=== PATIENT | female | born 1960 | race Caucasian/White ===

== ENCOUNTER 2017-05-22 07:03 | Outpatient (CLI) | payer OTHER ==
--- NOTE | 2017-05-22 08:43 | RAD ---
CHEST PA AND LATERAL: History: 57-year-old female with doctor's order indicating pneumonia. Comparison: 12-25-08 FINDINGS: Heart size is within normal limits. The lungs are clear. No confluent pneumonia, overt edema or pleu ral effusion. IMPRESSION: No acute intrathoracic disease. No evidence of pneumonia. Stable from prior study. POS: OFF
== END 2017-05-22 07:04 | disposition home or self-care (01) ==
LOC: RAD 07:03
PROVIDERS: ATTEND Family Medicine
DX: J18.9 Pneumonia, unspecified organism (principal)
CPT/HCPCS: 71020

== ENCOUNTER 2019-01-19 07:40 | Outpatient (CLI) | payer MEDICARE ==
--- NOTE | 2019-01-19 09:57 | RAD ---
RIGHT WRIST 3 VIEWS: HISTORY: Wrist pain. M25.531. COMPARISON: Wrist radiographs 01/12/2019. FINDINGS: There is severe degenerative disease of the thumb carpometacarpal joint. The scaphoid is intact. Moderate degenerative disease of the index finger carpometacarpal joint. There is a small joint effusion of the wrist. No acute displaced wrist fracture or malalignment. IMPRESSION: Intact scaphoid. Severe degenerative disease of the thumb carpometacarpal joint. POS: TPC
== END 2019-01-19 07:41 | disposition home or self-care (01) ==
LOC: RAD 07:40
PROVIDERS: ATTEND Family Medicine
DX: M25.531 Pain in right wrist (principal); M18.11 Unilateral primary osteoarthritis of first carpometacarpal joint, right hand

== ENCOUNTER 2019-07-22 08:33 | Outpatient (CLI) | payer MEDICARE ==
[2019-07-22 10:02] LABS: #Basophils 0.1 thou/uL (0.0-0.2); #Eosinphils 0.3 thou/uL (0.0-0.7); #Lymphocytes 2.8 thou/uL (1.20-3.40); #Monocytes 0.7 thou/uL (0.11-0.59); #Neutrophils 5.4 thou/uL (1.40-6.50); %Eosinophils 2.8 % (0.0-10.0); %Monocytes 7.1 % (0.0-10.0); %Neutrophils 58.3 % (42.0-75.0); Hemoglobin 13.5 g/dL (12.0-16.0); Mean Corpuscular HGB CONC 35.1 g/dL (32.0-36.0); Mean Corpuscular Hemoglobin 29.7 pg (27.0-31.0); Mean Corpuscular Volume 84.4 fL (78.0-98.0); Mean Platelet Volume 6.9 fL (7.4-10.4); Platelet Count 323 thou/uL (130-400); RBC Distribution Width 13.5 % (11.5-14.5); Red Blood Cell (RBC) Count 4.56 mill/uL (4.20-5.40); White Blood Cell (WBC) Count 9.2 thou/uL (4.8-10.8)
[2019-07-22 10:13] LABS: Bacteria/HPF 4+ HPF (None Seen); Bilirubin Negative (Negative); Blood, Urine Negative (Negative); Clarity Turbid (Clear); Glucose, Urine (Dipstick) Normal (Negative); Leukocyte 250 Leu/uL (Negative); Nitrite 2+ (Negative); Protein, Urine (Dipstick) 20 mg/dL (Neg-Trace); RBC/HPF 0-3 HPF (0-3); Urobilinogen Normal mg/dL (Less than 2); WBC/HPF 21-50 HPF (0-3)
[2019-07-22 10:16] LABS: Anion Gap 11 mmol/L (10-20); BUN (Urea Nitrogen) 18 mg/dL (9.8-20.1); Calc. Creatinine Clearance 0 mL/min (70-130); Calcium 9.3 mg/dL (7.8-10.44); Carbon Dioxide 33 mmol/L (22-29); Chloride 103 mmol/L (98-107); Estimated GFR-MDRD 65; Glucose 112 mg/dL (70-105); Potassium 4.4 mmol/L (3.5-5.1); Sodium 143 mmol/L (136-145)
== END 2019-07-22 08:34 | disposition home or self-care (01) ==
LOC: LABBT 08:33
PROVIDERS: ATTEND Orthopaedic Surgery Hand Surgery
DX: Z01.818 Encounter for other preprocedural examination (principal); M18.11 Unilateral primary osteoarthritis of first carpometacarpal joint, right hand; E34.51 Complete androgen insensitivity syndrome
CPT/HCPCS: 80048; 81001; 85025; 93005; 93010

== ENCOUNTER → 2019-07-24 | Day surgery (SDC) | payer MEDICARE ==
[2019-07-22 08:56] VITALS: BMI 42.5
[~2019-07-24] MED LIST: Acetaminophen 325 MG TAB PO PRN; Bacitracin Zinc Ointment 30 gm TUBE ONE; Betamet Acet/Betamet Na Ph 30 MG/5 ML VIAL ONE; Bupivacaine HCl 0.5%/Epinephrine 1:200,000/PF 30 ml Vial ONE; Bupivacaine PF 0.5% 30 ML VIAL ONE; Dexamethasone 20 MG/5 ML VIAL ONE; Fentanyl 100 MCG/2 ML VIAL IV PRN; Fentanyl 100 MCG/2 ML VIAL ONE; HYDROcodone/Acetaminophen 10/325 mg Tablet PO PRN; Ketorolac Tromethamine 30 MG/ML VIAL IVP PRN; Ketorolac Tromethamine 30 MG/ML VIAL ONE; Lidocaine 1% PF 5 ML VIAL ONE; Midazolam HCl 2 mg/2 ml Vial ONE; Ondansetron PF 4 MG/2 ML Vial IVP PRN; Ondansetron PF 4 MG/2 ML Vial ONE; PROPOFOL 200 MG/20 ML VIAL ONE; Ropivacaine 0.2% 550 ML 550 ML NERVE BLCK SCH; Ropivacaine 0.2% HCl/PF (40 MG/20 ML VIAL) ONE; Ropivacaine 0.5% HCl/PF (150 MG/30 ML VIAL) ONE; Sodium Chloride 0.9% 10 ML ONE; Zolpidem Tartrate 5 MG TAB PO PRN
--- NOTE | 2019-07-24 10:03 | RAD ---
EXAM: XR Finger(s) Rt Min 2 View PROVIDED CLINICAL HISTORY: Surgery COMPARISON: 01/19/2019 FINDINGS: Multiple spot fluoroscopic intraoperative images were obtained of the right proximal thumb during the course of presumed thumb suspension plasty. IMPRESSION: As above.
--- NOTE | 2019-07-24 16:29 | OP ---
DATE OF PROCEDURE: 07/24/2019 PREOPERATIVE DIAGNOSES: 1. Left thumb carpometacarpal joint severe osteoarthritis. 2. Left 1st dorsal compartment tenosynovitis with de Quervain's. FINDINGS: 1. Left thumb carpometacarpal joint severe osteoarthritis. 2. Left 1st dorsal compartment tenosynovitis with de Quervain's with very thick tenosynovium and tight retinaculum in the 1st dorsal compartment of the same left wrist and then at the left thumb, 90% involvement articular surface of the trapezoid, large osteophytes of trapezoid, and the base of the thumb metacarpal. PROCEDURES PERFORMED: 1. De Quervain release, left upper extremity. 2. Left extensor compartment, 1st, release, with tenosynovectomy, radical. 3. Ligament replacement and tendon interposition for the CMC arthroplasty of the left thumb. 4. C-arm supervision. 5. Tendon transfer, flexor carpi radialis tendon. SPECIMEN REMOVED: Trapezium complete. ESTIMATED BLOOD LOSS: 20 mL. TOURNIQUET TIME: 111 minutes. DESCRIPTION OF PROCEDURE: After successful anesthesia combination of general LMA and block, limb was prepped and draped. We did a time-out to identify the appropriate thumb and site, and then, we were able to use the C-arm to get final confirmation. We outlined the first dorsal compartment incision, FCR harvest incisions, and the curvilinear base of thumb carpometacarpal joint incision. We injected each with 5 mL of Marcaine and then exsanguinated the limb with the tourniquet inflated to 250 mmHg pressure. We then made the zigzag 1st dorsal compartment incision, saw the superficial radial nerve branches, dissected bluntly down to the retinaculum, protected them, and opened the retinaculum in line with [place] blade. We then sutured dorsally, there was another sleeve, which we incorporated into the removal. Then, attention was turned to visualize the tendons. There were 3 sleeves of tendons, 2 of the abductor pollicis longus and then no separate extensor compartment, but there was tenosynovitis, so we performed a radical tenosynovectomy of the extensor tendons within this compartment, a sample of which was sent as a specimen. At this point, the patient then had the curvilinear incision made over the base of the thumb, carried through skin and subcutaneous tissue, out the cutaneous nerve branch, preserving them, then released with a [place] blade the fascia of the thenar muscles versus other insertions on the joint capsule and the abductor pollicis tendon. We then this, opened up the joint capsule and tagged with interrupted 2-0 Vicryl and visualized the carpometacarpal joint of the thumb. Arthrosis was 90% as we listed above. We then began sharp dissection with tenotomy scissors, that beginning at radial distal to ulnar proximal until we had opened the scaphoid-trapezial interval capsule and we were able to find the flexor carpi radialis. We found it just entered the wrist, removed it from its soft tissue envelope including its a edge on the ulnar wall of the trapezium, protected it, and then lifted the trapezium out after placing, identifying 2-0 threaded K-wire and this showed excellent position and that was the trapezium. The trapezium removed the large osteophytes around the entire 2/3 of the base of the thumb. We then rotated the thumb into the plane of the palm, elevated the back wall to protect the FCR with a small wide spoonbill Hohmann and drilled a 2.5 drill bit from a 1.25 cm distal to the lateral wall of the thumb into obliquely actually the junction of the chondral surface with the metaphysis. We then widened this with a 3.5 drill bit over the same area, used a curette to make it even wider. We then found the flexor carpi radialis tendons in the forearm, used 2 incisions to harvest it, and we did a complete harvest. We then took a complete transferred tendon and weaved it from inside out at the thumb tunnel, secured it under tension, and then pinned it in nearly anatomical position in frontal sagittal plane. The patient then had the remainder of the FCR secured to the sidewall under tension of the thumb, the abductor pollicis longus, and the capsule thickening posterior in the CMC joint. This was tied with 3-0 Prolene interrupted. After this, we then had a previously placed deep in the posterior ulnar capsule a 3-0 Prolene, and we performed the anchovy with a 3-0 Prolene, being threaded using a Oliverio needle x2 and this was tied deep and the capsule was closed over it. We released the tourniquet. We obtained hemostasis. We closed the fascia and the thenar muscle back to fascia and extensor mechanism, this was interrupted, and then we closed subcutaneous tissue with a running 3-0 Monocryl at all the four incisions, used Steri-Strips and dried, Adaptic with 4x4, Kerlix, and a thumb spica splint. She left the operating room without evidence of anesthetic or operative complication. Job ID: [id number]
== END ==
LOC: SDC 05:26
PROVIDERS: ATTEND Orthopaedic Surgery Hand Surgery
PROC: 0LX80ZZ Transfer Left Hand Tendon, Open Approach (ICD-10-PCS; principal; 2019-07-24)
PROC: 0LU807Z Supplement Left Hand Tendon with Autologous Tissue Substitute, Open Approach (ICD-10-PCS; 2019-07-24)
PROC: 0RQT0ZZ Repair Left Carpometacarpal Joint, Open Approach (ICD-10-PCS; 2019-07-24)
PROC: 0LN60ZZ Release Left Lower Arm and Wrist Tendon, Open Approach (ICD-10-PCS; 2019-07-24)
PROC: 0LB60ZZ Excision of Left Lower Arm and Wrist Tendon, Open Approach (ICD-10-PCS; 2019-07-24)
PROC: 3E0T3BZ Introduction of Anesthetic Agent into Peripheral Nerves and Plexi, Percutaneous Approach (ICD-10-PCS; 2019-07-24)
DX: M18.11 Unilateral primary osteoarthritis of first carpometacarpal joint, right hand (principal); M65.4 Radial styloid tenosynovitis [de Quervain]; I10 Essential (primary) hypertension; M89.29 Other disorders of bone development and growth, multiple sites; G89.18 Other acute postprocedural pain; M54.9 Dorsalgia, unspecified; G25.81 Restless legs syndrome; E66.01 Morbid (severe) obesity due to excess calories; Z68.41 Body mass index [BMI] 40.0-44.9, adult; Z79.1 Long term (current) use of non-steroidal anti-inflammatories (NSAID); Z79.82 Long term (current) use of aspirin; Z79.899 Other long term (current) drug therapy; Z85.3 Personal history of malignant neoplasm of breast; Z88.1 Allergy status to other antibiotic agents; Z88.5 Allergy status to narcotic agent; Z88.8 Allergy status to other drugs, medicaments and biological substances; Z91.048 Other nonmedicinal substance allergy status; Z98.84 Bariatric surgery status
CPT/HCPCS: 25116; 25447; 26483; 64413; 73140; 76000; A4306; 88305; J0670; J0690; J0702; J1100; J1885; J2001; J2250; J2405; J2704; J2795; J3010; J3490; S0020

== ENCOUNTER 2019-08-18 10:48 | Day surgery (SDC) | payer MEDICARE ==
[2019-08-17 14:30] VITALS: BMI 42.5
[~2019-08-18 10:48] MED LIST changes: -Acetaminophen 325 MG TAB PO PRN; -Bacitracin Zinc Ointment 30 gm TUBE ONE; -Betamet Acet/Betamet Na Ph 30 MG/5 ML VIAL ONE; -Bupivacaine HCl 0.5%/Epinephrine 1:200,000/PF 30 ml Vial ONE; -Bupivacaine PF 0.5% 30 ML VIAL ONE; -Dexamethasone 20 MG/5 ML VIAL ONE; -Fentanyl 100 MCG/2 ML VIAL IV PRN; -Fentanyl 100 MCG/2 ML VIAL ONE; -HYDROcodone/Acetaminophen 10/325 mg Tablet PO PRN; -Ketorolac Tromethamine 30 MG/ML VIAL IVP PRN; -Ketorolac Tromethamine 30 MG/ML VIAL ONE; -Midazolam HCl 2 mg/2 ml Vial ONE; -Ondansetron PF 4 MG/2 ML Vial IVP PRN; -Ondansetron PF 4 MG/2 ML Vial ONE; -Ropivacaine 0.2% 550 ML 550 ML NERVE BLCK SCH; -Ropivacaine 0.2% HCl/PF (40 MG/20 ML VIAL) ONE; -Ropivacaine 0.5% HCl/PF (150 MG/30 ML VIAL) ONE; -Sodium Chloride 0.9% 10 ML ONE; -Zolpidem Tartrate 5 MG TAB PO PRN; +ePHEDrine/0.9% NaCl/PF SYRINGE 50 mg/10 ml ONE
[2019-08-18 12:15] LABS: Anion Gap 11 mmol/L (10-20); BUN (Urea Nitrogen) 16 mg/dL (9.8-20.1); Calc. Creatinine Clearance 148 mL/min (70-130); Calcium 9.3 mg/dL (7.8-10.44); Carbon Dioxide 32 mmol/L (22-29); Chloride 101 mmol/L (98-107); Estimated GFR-MDRD 85; Glucose 98 mg/dL (70-105); Potassium 4.2 mmol/L (3.5-5.1); Sodium 140 mmol/L (136-145)
[2019-08-18] MEDS ORDERED: Bupivacaine PF 0.5% 30 ML VIAL ONE (14:39)
[2019-08-18] MEDS ORDERED: Bacitracin Zinc Ointment 30 gm TUBE ONE (14:40)
[2019-08-18] MEDS ORDERED: Sodium Chloride 0.9% 10 ML ONE (14:40)
[2019-08-18] MEDS ORDERED: Fentanyl 100 MCG/2 ML VIAL ONE (16:20)
[2019-08-18] MEDS ORDERED: Ketorolac Tromethamine 30 MG/ML VIAL ONE (16:25)
[2019-08-18] MEDS ORDERED: Ondansetron PF 4 MG/2 ML Vial ONE (16:25)
--- NOTE | 2019-08-18 16:31 | OP ---
DATE OF PROCEDURE: 08/18/2019 PREOPERATIVE DIAGNOSIS: Painful deep implant, right thumb. POSTOPERATIVE DIAGNOSIS: Painful deep implant, right thumb. PROCEDURES PERFORMED: 1. C-arm supervision. 2. Removal of deep implant, right thumb. FINDINGS: After implant was removed, the first metacarpal to the second metacarpal interval as well as relationship to the scaphoid was maintained without loss of height. DESCRIPTION OF PROCEDURE: After successful general and LMA technique, the limb was prepped and draped. We brought the C-arm to the field. We exsanguinated the limb and inflated the tourniquet. We used the distal 1 cm of an incision after the C-arm identified the wire, dissected down, it was buried underneath one of the extensor tendons, dissected around it and removed the K-wire deep implant. We then irrigated the area. We released the tourniquet and obtained hemostasis. Post C-arm views after K-wire removal showed no migration or loss of position. We obtained hemostasis and closed the wound with interrupted 4-0 nylon multiple sutures. Bulky dressing applied without splint. The patient left the operating room without evidence of anesthetic or operative complication. Job ID: [id number]
--- NOTE | 2019-08-18 17:17 | RAD ---
Right thumb 2 views intraoperative fluoroscopy HISTORY: Orthopedic fixation. FINDINGS: Intraoperative fluoroscopy was provided for orthopedic fixation is performed by Dr. Lulú zamora. Spot fluoroscopic image shows lateral dislocation at the first carpometacarpal joint. Degenerative changes throughout the wrist and first metacarpophalangeal joint. Fluoroscopy time 10 seconds.
== END 2019-08-18 18:06 | disposition home or self-care (01) ==
LOC: SDC 10:48
PROVIDERS: ATTEND Orthopaedic Surgery Hand Surgery
PROC: 0RP Upper Joints, Removal (ICD-10-PCS; principal; 2019-08-18)
DX: T84.84XA Pain due to internal orthopedic prosthetic devices, implants and grafts, initial encounter (principal); T84.220A Displacement of internal fixation device of bones of hand and fingers, initial encounter; M54.12 Radiculopathy, cervical region; G89.29 Other chronic pain; M54.9 Dorsalgia, unspecified; I10 Essential (primary) hypertension; I47.1 Supraventricular tachycardia; Z85.3 Personal history of malignant neoplasm of breast; Z87.891 Personal history of nicotine dependence; Z79.82 Long term (current) use of aspirin; Z79.899 Other long term (current) drug therapy; Z88.1 Allergy status to other antibiotic agents; Z88.5 Allergy status to narcotic agent; Z88.8 Allergy status to other drugs, medicaments and biological substances; Z91.048 Other nonmedicinal substance allergy status; Z98.84 Bariatric surgery status
CPT/HCPCS: 36415; 76000; 80048; 93005; 93010; J0690; J1885; J2001; J2405; J2704; J3010; J3490; S0020

== ENCOUNTER 2020-03-07 13:17 | Emergency (ER) | payer MEDICARE ==
[2020-03-07] MEDS ORDERED: Bacitracin 1 PK ONE (13:52)
[2020-03-07] MEDS ORDERED: Adacel (T-DAP) 0.5 ML SYRINGE ONE (14:02)
== END 2020-03-07 14:10 | disposition home or self-care (01) ==
LOC: ERS 13:17
DX: S51.851A Open bite of right forearm, initial encounter (principal); M19.90 Unspecified osteoarthritis, unspecified site; Z85.3 Personal history of malignant neoplasm of breast; Z79.82 Long term (current) use of aspirin; Z79.899 Other long term (current) drug therapy; Z87.891 Personal history of nicotine dependence; W54.0XXA Bitten by dog, initial encounter
CPT/HCPCS: 90471; 90715

== ENCOUNTER 2020-03-21 04:47 | Emergency (ER) | payer MEDICARE | END 2020-03-21 05:26 | disposition home or self-care (01) | LOC: ERS 04:47 | DX: G89.29 Other chronic pain (principal); M54.5 Low back pain; M19.90 Unspecified osteoarthritis, unspecified site; Z87.891 Personal history of nicotine dependence; Z79.899 Other long term (current) drug therapy; Z79.82 Long term (current) use of aspirin | CPT/HCPCS: 99281 ==

== ENCOUNTER 2020-10-27 09:48 | Inpatient (IN) | payer MEDICARE ==
[2020-10-27 10:38] LABS: #Basophils 0.1 thou/uL (0.0-0.2); #Eosinphils 0.2 thou/uL (0.0-0.7); #Lymphocytes 2.5 thou/uL (1.20-3.40); #Monocytes 0.7 thou/uL (0.11-0.59); #Neutrophils 10.4 thou/uL (1.40-6.50); %Basophils 0.4 % (0.0-1.0); %Eosinophils 1.5 % (0.0-10.0); %Monocytes 4.8 % (0.0-10.0); %Neutrophils 75.4 % (42.0-75.0); Hemoglobin 13.3 g/dL (12.0-16.0); Mean Corpuscular HGB CONC 35.1 g/dL (32.0-36.0); Mean Corpuscular Hemoglobin 30.6 pg (27.0-31.0); Mean Corpuscular Volume 87.2 fL (78.0-98.0); Mean Platelet Volume 7.2 fL (7.4-10.4); Platelet Count 242 thou/uL (130-400); Red Blood Cell (RBC) Count 4.36 mill/uL (4.20-5.40); White Blood Cell (WBC) Count 13.8 thou/uL (4.8-10.8)
[2020-10-27 10:41] LABS: Bilirubin Small (Negative); Blood, Urine Negative (Negative); Glucose, Urine (Dipstick) Negative (Negative); Ketone, Urine > or equal to 80 mg/dL (Negative); Leukocyte Small (Negative); Nitrite Negative (Negative); Protein, Urine (Dipstick) Negative (Neg-Trace); Specific Gravity, Urine 1.015 (1.005-1.030)
[2020-10-27 10:52] LABS: Bacteria/HPF Rare-Few HPF (None Seen); Clarity Clear (Clear); RBC/HPF None Seen HPF (0-3); Squamous Epithelial 0-3 HPF (0-3)
[2020-10-27] MEDS ORDERED: cefTRIAXone\\ROCEPHIN 2 GM VIAL ONE (11:03)
[2020-10-27 11:04] LABS: ALT (SGPT) 18 U/L (8-55); AST (SGOT) 16 U/L (5-34); Albumin 3.8 g/dL (3.5-5.0); Alkaline Phosphatase 107 U/L (40-110); Anion Gap 13 mmol/L (10-20); BUN (Urea Nitrogen) 9 mg/dL (9.8-20.1); Bilirubin, Total 1.2 mg/dL (0.2-1.2); Calc. Creatinine Clearance 0 mL/min (70-130); Calcium 8.7 mg/dL (7.8-10.44); Carbon Dioxide 28 mmol/L (22-29); Chloride 101 mmol/L (98-107); Globulin 2.7 g/dL (2.4-3.5); Glucose 126 mg/dL (70-105); Protein, Total 6.5 g/dL (6.0-8.3); Sodium 139 mmol/L (136-145)
[2020-10-27 11:09] LABS: Potassium 2.8 mmol/L (3.5-5.1)
[2020-10-27] MEDS ORDERED: Potassium Chloride 20 MEQ TAB ONE (11:17)
[2020-10-27] MEDS ORDERED: Azithromycin 500 MG VIAL ONE (12:24)
[2020-10-27] MEDS ORDERED: Enoxaparin Sodium 30 MG/0.3 ML SYRINGE ONE (12:42)
[2020-10-27] MEDS ORDERED: Enoxaparin Sodium 80 MG/0.8 ML SYRINGE ONE (12:42)
[2020-10-27] MEDS ORDERED: Ondansetron ODT 4 MG TAB PO PRN (13:37)
[2020-10-27] MEDS ORDERED: Acetaminophen 650 MG Suppository PR PRN (13:37)
[2020-10-27] MEDS ORDERED: Guaifenesin DM 100-10/5 ML UDCUP PO PRN (13:37)
[2020-10-27] MEDS ORDERED: Ondansetron PF 4 MG/2 ML Vial IVP PRN (13:37)
[2020-10-27] MEDS ORDERED: Acetaminophen 325 MG TAB PO PRN (13:37)
[2020-10-27 13:56] LABS: SARS-CoV-2 NAA Rapid Test Not Detected (NotDetected)
[2020-10-27] MEDS ORDERED: Albuterol 200 PUFF (6.7GM INHALER) INH PRN (14:20)
[2020-10-27] MEDS ORDERED: Iopamidol-370 76% 500 ML 1 ML ONE (14:22)
[2020-10-27] MEDS ORDERED: Potassium Phosphate 30 MMOL in Sodium Chloride 0.9% 250 ML 250 ML IVPB SCH (14:30)
[2020-10-27 14:48] LABS: Troponin I Less than 0.010 ng/mL (< 0.028)
[2020-10-27 17:03] LABS: Troponin I Less than 0.010 ng/mL (< 0.028)
[2020-10-27 17:06] VITALS: BMI 44.9
[2020-10-27 19:35] LABS: Anion Gap 14 mmol/L (10-20); BUN (Urea Nitrogen) 7 mg/dL (9.8-20.1); Calc. Creatinine Clearance 172 mL/min (70-130); Calcium 7.8 mg/dL (7.8-10.44); Carbon Dioxide 24 mmol/L (22-29); Chloride 106 mmol/L (98-107); Glucose 111 mg/dL (70-105); Magnesium 1.7 mg/dL (1.6-2.6); Sodium 141 mmol/L (136-145)
[2020-10-27 19:54] LABS: Potassium 2.8 mmol/L (3.5-5.1)
[2020-10-27] MEDS: Enoxaparin Sodium 120 MG/0.8 ML SYRINGE SC SCH (20:53)
[2020-10-27] MEDS ORDERED: rOPINIRole HCl 2 MG TAB PO SCH (21:45)
[2020-10-27 22:38] LABS: SARS-CoV-2 PCR by NAA Not Detected (NotDetected)
[2020-10-28 07:39] LABS: #Eosinphils 0.3 thou/uL (0.0-0.7); #Lymphocytes 1.9 thou/uL (1.20-3.40); #Monocytes 0.6 thou/uL (0.11-0.59); #Neutrophils 6.1 thou/uL (1.40-6.50); %Basophils 0.3 % (0.0-1.0); %Eosinophils 3.4 % (0.0-10.0); %Lymphocytes 20.9 % (21.0-51.0); %Monocytes 6.2 % (0.0-10.0); %Neutrophils 69.2 % (42.0-75.0); Hemoglobin 12.2 g/dL (12.0-16.0); Mean Corpuscular HGB CONC 35.5 g/dL (32.0-36.0); Mean Corpuscular Volume 87.4 fL (78.0-98.0); Platelet Count 227 thou/uL (130-400); RBC Distribution Width 12.9 % (11.5-14.5); Red Blood Cell (RBC) Count 3.95 mill/uL (4.20-5.40); White Blood Cell (WBC) Count 8.8 thou/uL (4.8-10.8)
[2020-10-28 07:44] LABS: Anion Gap 16 mmol/L (10-20); BUN (Urea Nitrogen) 5 mg/dL (9.8-20.1); Calc. Creatinine Clearance 180 mL/min (70-130); Carbon Dioxide 20 mmol/L (22-29); Chloride 104 mmol/L (98-107); Glucose 139 mg/dL (70-105); Sodium 137 mmol/L (136-145)
[2020-10-28 07:49] LABS: Potassium 2.9 mmol/L (3.5-5.1)
[2020-10-28] MEDS ORDERED: Potassium Phosphate 30 MMOL in Sodium Chloride 0.9% 250 ML 250 ML IVPB SCH (08:15)
[2020-10-28] MEDS ORDERED: Potassium Chloride 20 MEQ TAB PO SCH (08:15)
[2020-10-28] MEDS ORDERED: Magnesium 2 GM/50 ML 2 GM in Premix Bag 1 BAG IVPB SCH (08:30)
[2020-10-28] MEDS: Enoxaparin Sodium 120 MG/0.8 ML SYRINGE SC SCH (08:58)
[2020-10-28] MEDS ORDERED: rOPINIRole HCl 2 MG TAB PO SCH (09:00)
[2020-10-28] MEDS ORDERED: Apixaban 5 MG TAB PO SCH ×2 (09:00→21:00)
[2020-10-28] MEDS ORDERED: cefTRIAXone\\ROCEPHIN 1 GM in Sodium Chloride 0.9% 100 ML IVPB SCH (11:00)
[2020-10-28 12:00] LABS: Anion Gap 15 mmol/L (10-20); BUN (Urea Nitrogen) 4 mg/dL (9.8-20.1); Calc. Creatinine Clearance 216 mL/min (70-130); Calcium 8.7 mg/dL (7.8-10.44); Carbon Dioxide 23 mmol/L (22-29); Chloride 104 mmol/L (98-107); Glucose 106 mg/dL (70-105); Sodium 139 mmol/L (136-145)
[2020-10-28] MEDS ORDERED: Azithromycin 500 MG in Sodium Chloride 0.9% 250 ML 250 ML IVPB SCH ×2 (12:00→18:00)
[2020-10-28 12:06] LABS: Potassium 2.9 mmol/L (3.5-5.1)
[2020-10-28 15:25] LABS: Anion Gap 20 mmol/L (10-20); BUN (Urea Nitrogen) 4 mg/dL (9.8-20.1); Calc. Creatinine Clearance 177 mL/min (70-130); Calcium 8.1 mg/dL (7.8-10.44); Carbon Dioxide 17 mmol/L (22-29); Chloride 106 mmol/L (98-107); Glucose 103 mg/dL (70-105); Potassium 3.8 mmol/L (3.5-5.1); Sodium 139 mmol/L (136-145)
[2020-10-28 17:18] LABS: SARS-CoV-2 IgG Ab Non-Reactive (NonReactive); SARS-CoV-2 IgG Index 0.05 S/CO (< 1.40)
[2020-10-28 17:54] VITALS: BP 128/76; TEMP 98.4
[2020-10-28] MEDS ORDERED: carBAMazepine 100 mg Chewable Tablet PO SCH (21:00)
[2020-10-28] MEDS ORDERED: Amitriptyline HCl 100 MG TAB PO SCH (21:00)
[2020-10-28] MEDS ORDERED: CeleCOXIB 100 MG CAP PO SCH (21:00)
[2020-10-28] MEDS ORDERED: Non-Formulary Item 1 EACH (Baclofen [Baclofen] 20 MG Tablet) PO SCH (21:00)
[2020-10-28] MEDS ORDERED: Hydrochlorothiazide 25 MG TAB PO SCH ×2 (21:00)
[2020-10-28] MEDS ORDERED: Non-Formulary Item 1 EACH (Celecoxib [Celebrex] 200 MG Capsule) PO SCH (21:00)
[2020-10-28] MEDS ORDERED: Baclofen 10 MG TAB PO SCH (21:00)
[2020-10-29] MEDS ORDERED: Hydrochlorothiazide 25 MG TAB PO SCH ×2 (09:00)
== END 2020-10-28 18:33 | disposition home or self-care (01) | DRG 871 ==
LOC: ERS 09:48 → T4-A 12:42
PROVIDERS: ADMIT Internal Medicine; ATTEND Internal Medicine
DX: A41.9 Sepsis, unspecified organism (principal); I26.99 Other pulmonary embolism without acute cor pulmonale; J18.9 Pneumonia, unspecified organism; N39.0 Urinary tract infection, site not specified; Z20.822 Contact with and (suspected) exposure to COVID-19; G89.29 Other chronic pain; M54.9 Dorsalgia, unspecified; E78.5 Hyperlipidemia, unspecified; I10 Essential (primary) hypertension; F32.9 Major depressive disorder, single episode, unspecified; F41.9 Anxiety disorder, unspecified; G62.9 Polyneuropathy, unspecified; I45.10 Unspecified right bundle-branch block; M19.90 Unspecified osteoarthritis, unspecified site; Z87.891 Personal history of nicotine dependence; Z90.10 Acquired absence of unspecified breast and nipple; Z85.3 Personal history of malignant neoplasm of breast; Z88.1 Allergy status to other antibiotic agents; Z88.5 Allergy status to narcotic agent; Z88.8 Allergy status to other drugs, medicaments and biological substances; Z79.899 Other long term (current) drug therapy; Z79.82 Long term (current) use of aspirin; Z98.51 Tubal ligation status; Z90.49 Acquired absence of other specified parts of digestive tract
CPT/HCPCS: 0240U; 36415; 71045; 71275; 80048; 80053; 81003; 81015; 82728; 83605; 83735; 83880; 84145; 84484; 85025; 85379; 86140; 86769; 87040; 87635; 93005; 93970; 94760; 96365; 96367; 96372; J0456; J0696; J1650; J3475; J3490; J7050; Q9967; U0003; U0005

== ENCOUNTER 2020-12-05 08:44 | Outpatient (CLI) | payer OTHER | END 2020-12-05 08:45 | disposition home or self-care (01) | LOC: DTY/OP 08:44 | PROVIDERS: ATTEND Family Medicine | DX: Z68.41 Body mass index [BMI] 40.0-44.9, adult (principal) | CPT/HCPCS: 97802 ==

== ENCOUNTER 2021-05-17 08:17 | Outpatient (CLI) | payer MEDICARE ==
[2021-05-17 23:38] LABS: SARS-CoV-2 PCR by NAA Not Detected (NotDetected)
== END 2021-05-17 08:18 | disposition home or self-care (01) ==
LOC: LABBT 08:17
PROVIDERS: ATTEND Internal Medicine
DX: Z01.812 Encounter for preprocedural laboratory examination (principal); Z12.11 Encounter for screening for malignant neoplasm of colon; I26.99 Other pulmonary embolism without acute cor pulmonale; Z20.822 Contact with and (suspected) exposure to COVID-19
CPT/HCPCS: U0003; U0005

== ENCOUNTER 2021-05-22 06:32 | Day surgery (SDC) | payer MEDICARE ==
[2021-05-19 10:19] VITALS: BMI 42.5
[2021-05-22] MEDS ORDERED: Ondansetron PF 4 MG/2 ML Vial ONE (08:08)
[2021-05-22] MEDS ORDERED: Lidocaine 1% PF 5 ML VIAL ONE (09:34)
[2021-05-22] MEDS ORDERED: PROPOFOL 200 MG/20 ML VIAL ONE (09:34)
== END 2021-05-22 10:55 | disposition home or self-care (01) ==
LOC: SDC 06:32
PROVIDERS: ATTEND Internal Medicine
PROC: 0DJD8ZZ Inspection of Lower Intestinal Tract, Via Natural or Artificial Opening Endoscopic (ICD-10-PCS; principal; 2021-05-22)
DX: Z12.11 Encounter for screening for malignant neoplasm of colon (principal); K57.30 Diverticulosis of large intestine without perforation or abscess without bleeding; K64.8 Other hemorrhoids; K64.4 Residual hemorrhoidal skin tags; K21.9 Gastro-esophageal reflux disease without esophagitis; M19.90 Unspecified osteoarthritis, unspecified site; E11.9 Type 2 diabetes mellitus without complications; I10 Essential (primary) hypertension; E66.01 Morbid (severe) obesity due to excess calories; Z68.41 Body mass index [BMI] 40.0-44.9, adult; Z85.3 Personal history of malignant neoplasm of breast; Z86.711 Personal history of pulmonary embolism; Z80.0 Family history of malignant neoplasm of digestive organs; Z87.891 Personal history of nicotine dependence; Z79.01 Long term (current) use of anticoagulants; Z79.82 Long term (current) use of aspirin; Z79.84 Long term (current) use of oral hypoglycemic drugs; Z79.899 Other long term (current) drug therapy; Z88.1 Allergy status to other antibiotic agents; Z88.5 Allergy status to narcotic agent; Z88.8 Allergy status to other drugs, medicaments and biological substances; Z91.048 Other nonmedicinal substance allergy status; Z98.1 Arthrodesis status
CPT/HCPCS: J2405; J2704

== ENCOUNTER 2021-05-23 13:35 | Emergency (ER) | payer MEDICARE ==
[2021-05-23] MEDS ORDERED: Ondansetron ODT 4 MG TAB ONE (15:53)
== END 2021-05-23 15:57 | disposition home or self-care (01) ==
LOC: ERS 13:35
DX: S70.01XA Contusion of right hip, initial encounter (principal); S80.01XA Contusion of right knee, initial encounter; M19.90 Unspecified osteoarthritis, unspecified site; W22.8XXA Striking against or struck by other objects, initial encounter; Y93.01 Activity, walking, marching and hiking; Z86.711 Personal history of pulmonary embolism; Z85.3 Personal history of malignant neoplasm of breast; Z87.891 Personal history of nicotine dependence; Z86.73 Personal history of transient ischemic attack (TIA), and cerebral infarction without residual deficits; Z79.82 Long term (current) use of aspirin; Z79.899 Other long term (current) drug therapy; Z79.891 Long term (current) use of opiate analgesic
CPT/HCPCS: Q0162

== ENCOUNTER 2022-02-23 08:48 | Emergency (ER) | payer MEDICARE | END 2022-02-23 09:36 | disposition home or self-care (01) | LOC: ERS 08:48 | DX: L03.116 Cellulitis of left lower limb (principal); L03.115 Cellulitis of right lower limb; M54.9 Dorsalgia, unspecified; R00.0 Tachycardia, unspecified; Z87.891 Personal history of nicotine dependence; Z79.899 Other long term (current) drug therapy | CPT/HCPCS: 99282 ==

== ENCOUNTER 2022-03-01 05:08 | Emergency (ER) | payer MEDICARE ==
[2022-03-01 06:16] LABS: #Basophils 0.1 thou/uL (0.0-0.2); #Eosinphils 0.3 thou/uL (0.0-0.7); #Lymphocytes 2.4 thou/uL (1.20-3.40); #Monocytes 0.5 thou/uL (0.11-0.59); #Neutrophils 2.6 thou/uL (1.40-6.50); %Basophils 1.1 % (0.0-1.0); %Eosinophils 4.7 % (0.0-10.0); %Lymphocytes 40.7 % (21.0-51.0); %Monocytes 8.6 % (0.0-10.0); %Neutrophils 44.8 % (42.0-75.0); Hemoglobin 12.5 g/dL (12.0-16.0); Mean Corpuscular HGB CONC 34.1 g/dL (32.0-36.0); Mean Corpuscular Hemoglobin 30.6 pg (27.0-31.0); Mean Corpuscular Volume 89.6 fL (78.0-98.0); Mean Platelet Volume 7.5 fL (7.4-10.4); Platelet Count 244 thou/uL (130-400); RBC Distribution Width 13.8 % (11.5-14.5); Red Blood Cell (RBC) Count 4.09 mill/uL (4.20-5.40); White Blood Cell (WBC) Count 5.8 thou/uL (4.8-10.8)
[2022-03-01 06:39] LABS: ALT (SGPT) 11 U/L (8-55); AST (SGOT) 14 U/L (5-34); Albumin 3.7 g/dL (3.4-4.8); Alkaline Phosphatase 104 U/L (40-110); Anion Gap 13 mmol/L (10-20); BUN (Urea Nitrogen) 18 mg/dL (9.8-20.1); Bilirubin, Total 0.5 mg/dL (0.2-1.2); CRP (Inflammatory) 1.06 mg/dL (= or < 0.5); Calc. Creatinine Clearance 0 mL/min (70-130); Calcium 9.6 mg/dL (7.8-10.44); Carbon Dioxide 31 mmol/L (23-31); Chloride 101 mmol/L (98-107); Estimated GFR 67; Glucose 100 mg/dL (80-115); Potassium 3.7 mmol/L (3.5-5.1); Protein, Total 6.7 g/dL (5.8-8.1); Sodium 141 mmol/L (136-145)
== END 2022-03-01 06:57 | disposition home or self-care (01) ==
LOC: ERS 05:08
DX: L95.9 Vasculitis limited to the skin, unspecified (principal); R21 Rash and other nonspecific skin eruption; Z87.891 Personal history of nicotine dependence; Z79.899 Other long term (current) drug therapy; Z79.01 Long term (current) use of anticoagulants
CPT/HCPCS: 36415; 80053; 85025; 86140; 99283

== ENCOUNTER 2022-03-08 07:20 | Outpatient (CLI) | payer MEDICARE | END 2022-03-08 07:21 | disposition home or self-care (01) | LOC: RAD 07:20 | PROVIDERS: ATTEND Family Medicine | DX: R10.32 Left lower quadrant pain (principal) ==

== ENCOUNTER 2022-03-20 12:01 | Outpatient (CLI) | payer MEDICARE | END 2022-03-20 12:02 | disposition home or self-care (01) | LOC: BICULT 12:01 | PROVIDERS: ATTEND Family Medicine | DX: R10.32 Left lower quadrant pain (principal) | CPT/HCPCS: 76999 ==

== ENCOUNTER 2022-08-03 13:08 | Outpatient (CLI) | payer MEDICARE ==
[2022-08-03 15:47] LABS: Anion Gap 16 mmol/L (10-20); BUN (Urea Nitrogen) 16 mg/dL (9.8-20.1); Calc. Creatinine Clearance 0 mL/min (70-130); Calcium 9.5 mg/dL (7.8-10.44); Carbon Dioxide 28 mmol/L (23-31); Chloride 100 mmol/L (98-107); Estimated GFR 95; Glucose 98 mg/dL (80-115); Potassium 3.7 mmol/L (3.5-5.1); Sodium 140 mmol/L (136-145)
[2022-08-03 16:00] LABS: #Basophils 0.1 10x3/uL (0.0-0.2); #Eosinphils 0.5 10x3/uL (0.0-0.5); #Monocytes 0.6 10x3/uL (0.0-1.1); %Basophils 1.1 % (0.0-2.0); %Eosinophils 6.3 % (0.0-6.0); %Lymphocytes 30.7 % (18.0-47.0); %Monocytes 7.6 % (0.0-10.0); %Neutrophils 53.9 % (40.0-75.0); Hemoglobin 13.5 g/dL (12.0-15.5); Mean Corpuscular HGB CONC 35.9 g/dL (32.0-36.0); Mean Corpuscular Hemoglobin 29.3 pg (27.0-33.0); Mean Corpuscular Volume 81.6 fl (81.6-98.3); Mean Platelet Volume 10.4 fl (7.4-10.4); Platelet Count 329 10x3/uL (150-450); RBC Distribution Width 14.7 % (11.5-14.5); Red Blood Cell (RBC) Count 4.61 10x6/uL (3.90-5.03); White Blood Cell (WBC) Count 7.5 10x3/uL (3.5-10.5)
== END 2022-08-03 13:09 | disposition home or self-care (01) ==
LOC: LABBT 13:08
PROVIDERS: ATTEND Orthopaedic Surgery Hand Surgery
DX: Z01.818 Encounter for other preprocedural examination (principal); S63.591A Other specified sprain of right wrist, initial encounter
CPT/HCPCS: 80048; 85025; 93005; 93010

== ENCOUNTER 2022-08-07 07:00 | Day surgery (SDC) | payer MEDICARE ==
[2022-08-03 16:54] VITALS: BMI 44.2
[2022-08-07] MEDS ORDERED: Neomycin-Polymyxin 1 ML AMP ONE (08:42)
[2022-08-07] MEDS ORDERED: EPINEPHrine 1 MG/ML AMP ONE ×2 (08:42→09:26)
[2022-08-07] MEDS ORDERED: Bupivacaine PF 0.5% 30 ML VIAL ONE ×2 (08:42→11:29)
[2022-08-07] MEDS ORDERED: Bacitracin Zinc Ointment 30 gm TUBE ONE (08:42)
[2022-08-07] MEDS ORDERED: methylPREDNISolone Sod Succ/PF 125 MG/2 ML VIAL ONE (09:26)
[2022-08-07] MEDS ORDERED: diphenhydrAMINE 50 MG/ML VIAL ONE (09:26)
[2022-08-07] MEDS ORDERED: Sodium Chloride 0.9% 100 ML ONE (10:37)
[2022-08-07] MEDS ORDERED: Fentanyl 250 MCG/5 ML VIAL ONE (10:37)
[2022-08-07] MEDS ORDERED: CEFAZOLIN 2 GM VIAL ONE (10:37)
[2022-08-07] MEDS ORDERED: Ketamine 50 MG/ML (10ML VIAL) ONE (10:45)
[2022-08-07] MEDS ORDERED: Dexamethasone 20 MG/5 ML VIAL ONE (11:07)
[2022-08-07] MEDS ORDERED: Ketorolac Tromethamine 30 MG/ML VIAL ONE (11:07)
[2022-08-07] MEDS ORDERED: PROPOFOL 200 MG/20 ML VIAL ONE (11:07)
[2022-08-07] MEDS ORDERED: Glycopyrrolate 0.2 MG/ML 5 ML SYRINGE ONE (11:07)
[2022-08-07] MEDS ORDERED: Ondansetron PF 4 MG/2 ML Vial ONE (11:07)
[2022-08-07] MEDS ORDERED: Fentanyl 100 MCG/2 ML VIAL ONE ×2 (14:50→14:56)
== END 2022-08-07 15:45 | disposition home or self-care (01) ==
LOC: SDC 07:00
PROVIDERS: ATTEND Orthopaedic Surgery Hand Surgery
PROC: 0RBN4ZZ Excision of Right Wrist Joint, Percutaneous Endoscopic Approach (ICD-10-PCS; principal; 2022-08-07)
PROC: 0RQN0ZZ Repair Right Wrist Joint, Open Approach (ICD-10-PCS; 2022-08-07)
PROC: 0RQN0ZZ Repair Right Wrist Joint, Open Approach (ICD-10-PCS; 2022-08-07)
DX: S63.591A Other specified sprain of right wrist, initial encounter (principal); M65.88 Other synovitis and tenosynovitis, other site; M19.90 Unspecified osteoarthritis, unspecified site; I47.1 Supraventricular tachycardia; G25.81 Restless legs syndrome; G89.29 Other chronic pain; M54.9 Dorsalgia, unspecified; Z85.3 Personal history of malignant neoplasm of breast; Z79.01 Long term (current) use of anticoagulants; Z79.82 Long term (current) use of aspirin; Z79.84 Long term (current) use of oral hypoglycemic drugs; Z79.899 Other long term (current) drug therapy; Z88.1 Allergy status to other antibiotic agents; Z88.5 Allergy status to narcotic agent; Z88.6 Allergy status to analgesic agent; Z88.8 Allergy status to other drugs, medicaments and biological substances; Z91.048 Other nonmedicinal substance allergy status
CPT/HCPCS: J0171; J1100; J1200; J1885; J2405; J2704; J2930; J3010; J3490; S0020

== ENCOUNTER 2022-08-17 10:05 | Outpatient (CLI) | payer MEDICARE | END 2022-08-17 10:06 | disposition home or self-care (01) | LOC: BICRAD 10:05 | PROVIDERS: ATTEND Nurse Practitioner Family | DX: M25.571 Pain in right ankle and joints of right foot (principal); M79.89 Other specified soft tissue disorders ==

== ENCOUNTER 2023-03-01 08:33 | Outpatient (CLI) | payer MEDICARE | END 2023-03-01 08:34 | disposition home or self-care (01) | LOC: BICMAMMO 08:33 | PROVIDERS: ATTEND Family Medicine | DX: Z13.820 Encounter for screening for osteoporosis (principal); Z78.0 Asymptomatic menopausal state | CPT/HCPCS: 77080 ==

== ENCOUNTER 2023-03-30 17:05 | Emergency (ER) | payer MEDICARE ==
[~2023-03-30 17:05] MED LIST changes: +Iopamidol-370 76% 500 ML MDV (1 ML CHARGE) ONE; -Lidocaine 1% PF 5 ML VIAL ONE; -PROPOFOL 200 MG/20 ML VIAL ONE; -ePHEDrine/0.9% NaCl/PF SYRINGE 50 mg/10 ml ONE
[2023-03-30 17:39] LABS: Actual Bicarbonate (HCO3v) 28.1 mEq/L (22-28); Base Excess 7.1 mEq/L (-2.0 to +3.0); Calcium, Ionized (venous) 1.02 mmol/L (1.16-1.32); Chloride (VBG) 97 mmol/L (98-106); Hematocrit-VBG 42 % (36.0-47.0); Hemoglobin (Hb) 14.3 g/dL (11.7-16.0); Sodium 137.2 mmol/L (133-146); pH (venous) 7.598 (7.32-7.43)
[2023-03-30 17:41] LABS: Potassium (VBG) 2.57 mmol/L (3.70-5.30)
[2023-03-30 17:46] LABS: #Basophils 0.1 thou/uL (0.0-0.2); #Eosinphils 0.2 thou/uL (0.0-0.7); #Monocytes 0.5 thou/uL (0.11-0.59); #Neutrophils 3.3 thou/uL (1.40-6.50); %Basophils 0.8 % (0.0-1.0); %Eosinophils 3.1 % (0.0-10.0); %Lymphocytes 42.6 % (21.0-51.0); %Monocytes 6.9 % (0.0-10.0); %Neutrophils 46.2 % (42.0-75.0); Hematocrit 37.8 % (36.0-47.0); Hemoglobin 13.6 g/dL (12.0-16.0); Mean Corpuscular Hemoglobin 28.9 pg (27.0-31.0); Mean Corpuscular Volume 80.3 fl (78.0-98.0); Platelet Count 343 10x3/uL (130-400); RBC Distribution Width 15.6 % (11.5-14.5); Red Blood Cell (RBC) Count 4.71 mill/uL (4.20-5.40); White Blood Cell (WBC) Count 7.1 10x3/uL (4.8-10.8)
[2023-03-30] MEDS ORDERED: Aspirin Chewable 81 MG TAB ONE (18:08)
[2023-03-30 18:15] LABS: Troponin I Less than 0.010 ng/mL (< 0.028)
[2023-03-30 18:16] LABS: ALT (SGPT) 8 U/L (8-55); AST (SGOT) 13 U/L (5-34); Alkaline Phosphatase 113 U/L (40-110); Anion Gap 15 mmol/L (10-20); BUN (Urea Nitrogen) 6 mg/dL (9.8-20.1); Bilirubin, Total 0.6 mg/dL (0.2-1.2); Calc. Creatinine Clearance 0 mL/min (70-130); Calcium 9.8 mg/dL (7.8-10.44); Carbon Dioxide 28 mmol/L (23-31); Chloride 97 mmol/L (98-107); Estimated GFR 66; Globulin 3.2 g/dL (2.4-3.5); Glucose 139 mg/dL (80-115); Potassium 2.8 mmol/L (3.5-5.1); Protein, Total 7.2 g/dL (5.8-8.1); Sodium 137 mmol/L (136-145)
[2023-03-30] MEDS ORDERED: LORazepam 2 MG/ML SYR.(CARPUJECT) ONE ×2 (20:10→20:55)
== END 2023-03-30 23:10 | disposition home or self-care (01) ==
LOC: ERS 17:05
DX: R06.00 Dyspnea, unspecified (principal); Z87.891 Personal history of nicotine dependence
CPT/HCPCS: 71045; 71275; 80053; 82805; 83880; 84484; 85025; 93005; J2060; 36415; 96374; 96376; Q9967

== ENCOUNTER 2023-04-10 12:57 | Observation (INO) | payer MEDICARE ==
[2023-04-10 13:30] LABS: #Basophils 0.1 thou/uL (0.0-0.2); #Eosinphils 0.3 thou/uL (0.0-0.7); #Monocytes 0.6 thou/uL (0.11-0.59); #Neutrophils 3.4 thou/uL (1.40-6.50); %Basophils 0.6 % (0.0-1.0); %Eosinophils 4.1 % (0.0-10.0); %Lymphocytes 43.3 % (21.0-51.0); %Monocytes 7.4 % (0.0-10.0); %Neutrophils 44.2 % (42.0-75.0); Hematocrit 35.5 % (36.0-47.0); Hemoglobin 12.5 g/dL (12.0-16.0); Mean Corpuscular HGB CONC 35.2 g/dL (32.0-36.0); Mean Corpuscular Hemoglobin 28.8 pg (27.0-31.0); Mean Corpuscular Volume 81.8 fl (78.0-98.0); Mean Platelet Volume 10.1 fL (7.4-10.4); Platelet Count 291 10x3/uL (130-400); RBC Distribution Width 15.7 % (11.5-14.5); Red Blood Cell (RBC) Count 4.34 mill/uL (4.20-5.40); White Blood Cell (WBC) Count 7.7 10x3/uL (4.8-10.8)
[2023-04-10] MEDS ORDERED: methylPREDNISolone Sod Succ/PF 125 MG/2 ML VIAL ONE (13:53)
[2023-04-10 14:00] LABS: Troponin I Less than 0.010 ng/mL (< 0.028)
[2023-04-10 14:02] LABS: INR-International Normal Ratio 1.3; Prothrombin Time 16.8 sec (12.0-14.7)
[2023-04-10 14:04] LABS: ALT (SGPT) 10 U/L (8-55); AST (SGOT) 15 U/L (5-34); Albumin 3.7 g/dL (3.4-4.8); Alkaline Phosphatase 105 U/L (40-110); Anion Gap 11 mmol/L (10-20); BUN (Urea Nitrogen) 9 mg/dL (9.8-20.1); Bilirubin, Total 0.5 mg/dL (0.2-1.2); Calc. Creatinine Clearance 0 mL/min (70-130); Calcium 9.2 mg/dL (7.8-10.44); Carbon Dioxide 27 mmol/L (23-31); Chloride 100 mmol/L (98-107); Estimated GFR 82; Globulin 3.1 g/dL (2.4-3.5); Glucose 149 mg/dL (80-115); Protein, Total 6.8 g/dL (5.8-8.1); Sodium 136 mmol/L (136-145)
[2023-04-10 14:07] LABS: Potassium 2.4 mmol/L (3.5-5.1)
[2023-04-10] MEDS ORDERED: Potassium Chloride 20 MEQ TAB ONE (14:24)
[2023-04-10] MEDS ORDERED: Acetaminophen 325 MG TAB PO PRN (16:50)
[2023-04-10] MEDS ORDERED: Guaifenesin DM 100-10/5 ML UDCUP PO PRN (16:50)
[2023-04-10] MEDS ORDERED: Senokot S 8.6-50 MG TAB PO PRN (16:50)
[2023-04-10] MEDS ORDERED: Ondansetron PF 4 MG/2 ML Vial IVP PRN (16:50)
[2023-04-10] MEDS ORDERED: rOPINIRole HCl 2 MG TAB PO PRN (16:52)
[2023-04-10 17:18] LABS: Magnesium 1.6 mg/dL (1.6-2.6)
[2023-04-10] MEDS ORDERED: Magnesium 2 GM/50 ML(in water) 2 GM in Premix Bag 1 BAG IVPB SCH (18:30)
[2023-04-10 19:13] LABS: SARS-CoV-2 NAA Rapid Test Not Detected (NotDetected)
[2023-04-10 19:35] VITALS: BMI 39.7
[2023-04-10] MEDS ORDERED: Pramipexole Di-HCl 0.25 MG TAB PO SCH (21:00)
[2023-04-10] MEDS ORDERED: Pregabalin 50 MG CAP PO SCH (21:00)
[2023-04-11 03:18] VITALS: TEMP 98.1
[2023-04-11 05:02] LABS: #Monocytes 0.1 thou/uL (0.11-0.59); #Neutrophils 5.6 thou/uL (1.40-6.50); %Basophils 0.1 % (0.0-1.0); %Lymphocytes 16.9 % (21.0-51.0); %Monocytes 1.3 % (0.0-10.0); %Neutrophils 80.5 % (42.0-75.0); Hematocrit 35.4 % (36.0-47.0); Hemoglobin 12.8 g/dL (12.0-16.0); Mean Corpuscular HGB CONC 36.2 g/dL (32.0-36.0); Mean Corpuscular Hemoglobin 28.9 pg (27.0-31.0); Mean Corpuscular Volume 79.9 fl (78.0-98.0); Mean Platelet Volume 10.8 fL (7.4-10.4); Platelet Count 289 10x3/uL (130-400); RBC Distribution Width 15.5 % (11.5-14.5); Red Blood Cell (RBC) Count 4.43 mill/uL (4.20-5.40); White Blood Cell (WBC) Count 6.9 10x3/uL (4.8-10.8)
[2023-04-11 05:31] LABS: ALT (SGPT) 9 U/L (8-55); AST (SGOT) 12 U/L (5-34); Albumin 3.6 g/dL (3.4-4.8); Alkaline Phosphatase 99 U/L (40-110); Anion Gap 13 mmol/L (10-20); BUN (Urea Nitrogen) 8 mg/dL (9.8-20.1); Bilirubin, Total 0.5 mg/dL (0.2-1.2); Calc. Creatinine Clearance 123 mL/min (70-130); Calcium 9.7 mg/dL (7.8-10.44); Carbon Dioxide 27 mmol/L (23-31); Chloride 99 mmol/L (98-107); Estimated GFR 89; Globulin 3.4 g/dL (2.4-3.5); Glucose 244 mg/dL (80-115); Potassium 3.2 mmol/L (3.5-5.1); Sodium 136 mmol/L (136-145)
[2023-04-11 08:35] VITALS: BP 128/60
[2023-04-11] MEDS ORDERED: Potassium Chloride 20 MEQ TAB PO SCH (10:15)
== END 2023-04-11 12:00 | disposition home or self-care (01) ==
LOC: ERS 12:57 → 2SW 16:52
PROVIDERS: ADMIT Internal Medicine; ATTEND Family Medicine
DX: R06.00 Dyspnea, unspecified (principal); E87.6 Hypokalemia; I10 Essential (primary) hypertension; E11.9 Type 2 diabetes mellitus without complications; M19.90 Unspecified osteoarthritis, unspecified site; Z79.01 Long term (current) use of anticoagulants; Z86.711 Personal history of pulmonary embolism; Z79.899 Other long term (current) drug therapy; Z79.82 Long term (current) use of aspirin; Z79.891 Long term (current) use of opiate analgesic; Z87.891 Personal history of nicotine dependence
CPT/HCPCS: 71045; 80053; 83605; 83735; 83880; 84484; 85025; 85610; 85730; 93005; 94640; 96372; 96374; 96375; 99285; G0378 ×3; U0002; 36415; 84443; J1650; J2930; J3475

== ENCOUNTER 2023-04-25 13:35 | Outpatient (CLI) | payer MEDICARE | END 2023-04-25 13:36 | disposition home or self-care (01) | LOC: ULT 13:35 | PROVIDERS: ATTEND Family Medicine | DX: R06.09 Other forms of dyspnea (principal) | CPT/HCPCS: 93306 ==

== ENCOUNTER 2025-05-18 06:07 | Day surgery (SDC) | payer OTHER ==
[2025-05-14 10:06] VITALS: BMI 39.3
[2025-05-18] MEDS ORDERED: Ondansetron PF 4 MG/2 ML Vial ONE (08:05)
[2025-05-18] MEDS ORDERED: Lidocaine 1% PF 5 ML VIAL ONE (08:05)
[2025-05-18] MEDS ORDERED: fentaNYL PF 100 MCG/2 ML SYRINGE ONE ×2 (08:06→10:48)
[2025-05-18] MEDS ORDERED: PROPOFOL 20 ML ONE (08:06)
[2025-05-18] MEDS ORDERED: PHENYLEPHRINE-NS 100 MCG/ML 10 ML SYRINGE ONE (08:08)
[2025-05-18] MEDS ORDERED: CEFAZOLIN 2 GM VIAL ONE (08:19)
[2025-05-18] MEDS ORDERED: Lidocaine 2% 6 ML (Jelly) SYR ONE (08:25)
[2025-05-18] MEDS ORDERED: Rocuronium Bromide 10 MG/ML (10ML VIAL) ONE (09:45)
[2025-05-18] MEDS ORDERED: SUGAMMADEX SODIUM 200 MG/2 ML VIAL ONE (09:54)
[2025-05-18] MEDS ORDERED: Ketorolac Tromethamine 30 MG (1 mL) VIAL ONE (10:38)
== END 2025-05-18 12:45 | disposition home or self-care (01) ==
LOC: SDC 06:07
PROVIDERS: ATTEND Orthopaedic Surgery Hand Surgery
PROC: 0RG Upper Joints, Fusion (ICD-10-PCS; principal; 2025-05-18)
DX: M19.042 Primary osteoarthritis, left hand (principal); M25.742 Osteophyte, left hand; I10 Essential (primary) hypertension; E78.5 Hyperlipidemia, unspecified; E11.9 Type 2 diabetes mellitus without complications
CPT/HCPCS: 26860; 73140; J0665; J1885; J2250; J2704; C1713; J1100